=== PATIENT | male | born 1940 | race Caucasian/White ===

== ENCOUNTER → 2017-01-01 | Outpatient (CLI) | payer MEDICARE | END | disposition home or self-care (01) | LOC: PCVCCLINIC 13:43 | PROVIDERS: ATTEND Nuclear Medicine Nuclear Cardiology | DX: I73.9 Peripheral vascular disease, unspecified (principal); I25.810 Atherosclerosis of coronary artery bypass graft(s) without angina pectoris; I10 Essential (primary) hypertension; E78.00 Pure hypercholesterolemia, unspecified; J43.9 Emphysema, unspecified; E03.9 Hypothyroidism, unspecified; F17.200 Nicotine dependence, unspecified, uncomplicated; Z95.1 Presence of aortocoronary bypass graft; Z79.899 Other long term (current) drug therapy | CPT/HCPCS: G0463 ==

== ENCOUNTER → 2017-01-15 | Outpatient (CLI) | payer OTHER ==
[~2017-01-15] MED LIST: ASPIRIN 325 MG TABLET ONE; CLOPIDOGREL BISULFATE 75 MG TABLET ONE; DIAZEPAM 10 MG TABLET. ONE; HEPARIN SODIUM 5,000 UNIT/ML VIAL for PCVC. ONE; IODIXANOL 270 MG/ML 100 ML VIAL. ONE; IV NORMAL SALINE 1000ML BAG 1,000 ML ONE; IV NORMAL SALINE 500ML BAG 500 ML ONE; LIDOCAINE 1% Multi-Dose 20 ML VIAL. ONE; MIDAZOLAM HCL/PF 2 MG/2 ML VIAL. ONE; VANCOMYCIN 1GM IVPB FOR OMNI 250 ML ONE; fentaNYL PF VIAL 100 MCG/2 ML VIAL ONE; hydrALAZINE 20 MG/ML VIAL. ONE
--- NOTE | 2017-01-15 18:24 | PCVCIMAG ---
EXAM: BILATERAL CAROTID DUPLEX INDICATION: Carotid Occlusive Disease. FINDINGS: Doppler Measurements (centimeters per second): RIGHT: Peak CCA-90, Peak ECA-81, Diastolic ICA-34, Peak ICA-186, ICA/CCA Ratio-2.1. LEFT: Peak CCA-98, Peak ECA-92, Diastolic ICA-27, Peak ICA-108, ICA/CCA Ratio-1.1. RIGHT CAROTID: The carotid bulb has moderately severe plaque. The proximal internal carotid artery shows 60-70% stenosis. The common carotid artery shows no significant stenosis. The external carotid artery shows no significant stenosis. LEFT CAROTID: The carotid bulb has moderate plaque. The proximal internal carotid artery shows <40% stenosis. The common carotid artery shows no significant stenosis. The external carotid artery shows no significant stenosis. Antegrade flow in both vertebral arteries. IMPRESSION: 60-70% stenosis of the right internal carotid artery with moderate severe plaque. <40% stenosis of the left internal carotid artery with moderate plaque. LOC:[place] [id number]
--- NOTE | 2017-01-15 18:29 | PCVCIMAG ---
EXAM: DUPLEX ULTRASOUND OF THE LEFT GROIN INDICATION: Groin swelling and pain. FINDINGS: No pseudoaneurysm is present. The common femoral vein is patent. No arteriovenous fistula is seen. Moderate stenosis mid/distal common femoral artery is noted. IMPRESSION: Study is negative for pseudoaneurysm. LOC:[id number]
--- NOTE | 2017-01-15 19:03 | PCVCINTER ---
EXAM: 1. AORTOGRAM AND BILATERAL LOWER EXTREMITY RUNOFF ANGIOGRAM 2. BILATERAL RENAL ANGIOGRAPHY 3. RIGHT COMMON ILIAC ARTERY STENT PLACEMENT. 4. LEFT COMMON ILIAC ARTERY STENT PLACEMENT. 5. SUPERIOR MESENTERIC ARTERY ANGIOGRAM INDICATION: Peripheral arterial disease. Coronary artery disease. Nonhealing ulcer right lower extremity. Hypertension. Renal atherosclerosis. PROCEDURE: Procedure and risks of angiography intervention is appropriate including limb loss stroke and were discussed with the patient's family and consent obtained. The patient's left groin was prepped abnormal sterile fashion. IV conscious sedation was used to procedure with appropriate monitoring for 90 minutes. Ultrasound was used to interrogate the left groin and showed the left common femoral artery to be patent. A permanent spot film was obtained. Under ultrasound guidance access into the left common femoral artery was obtained and a 5 Burmese sheath was placed. Through this a 5 Burmese flush catheter was placed into the abdominal aorta at the level of the renal arteries and AP aortogram was performed. Catheter was positioned at the aortic bifurcation and both oblique views of the pelvis were obtained. Catheter was positioned into the left external iliac artery and left leg runoff angiography was performed. Catheter was exchanged for a visceral catheter was placed into the right renal arteries and right renal angiograms obtained. Catheter was placed into the the left renal arteries and left renal angiograms were obtained. Catheter was placed into the superior mesenteric artery and SMA angiogram was obtained. Catheter was advanced to the level of the right external iliac artery and right leg runoff angiography was obtained. Patient was given 4000 units of heparin. A 6 Burmese crossover sheath was placed via the left groin to the level of the right common iliac artery. Stent placement across the areas of occlusion in the right common iliac artery was carried out with a 10 x 60 Smart control stent with subsequent dilatation to 7.0 mm. Stent placement across the areas of high-grade stenosis in the left common iliac artery was carried out with a 10 x 30 Smart control stent with subsequent dilatation to 7.0 mm. Catheters and wires removed. Sheath was removed and hemostasis obtained using the FISH device. No immediate complications. FINDINGS: Aortogram: There is one right and one left renal artery. Mild plaque infrarenal abdominal aorta without significant stenosis. Pelvis: There is complete occlusion of the right common iliac artery. 80% stenosis left common iliac artery. Moderate plaque throughout the right and left external iliac arteries without high-grade stenosis. The right common femoral artery shows adequate patency. 70% stenosis mid/distal left common iliac artery. Right renal artery: Minimal plaque proximal vessel. No significant stenosis. Left renal artery: Moderate plaque proximal vessel causes 40% stenosis not felt to be flow-limiting. 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 At this level in the proximal superior mesenteric artery there is a 50% stenosis. Mid and distal portions of the superior mesenteric artery appear patent. Right leg: Scattered plaque superficial femoral artery and popliteal artery without significant stenosis. The anterior tibial artery becomes diminutive in size distally. Peroneal artery is patent. Posterior tibial artery is patent. Left le% stenosis mid superficial femoral artery with the proximal/mid superficial femoral artery being small throughout. The distal superficial femoral artery is more normal in size. Popliteal artery shows moderate plaque without high-grade stenosis. The anterior tibial, posterior tibial, and peroneal arteries are patent. Right common iliac artery: Following procedure as above vessel shows satisfactory patency. Left common iliac artery: Following stent placement vessel shows good patency. 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 95% stenosis mid left superficial femoral artery. 50% stenosis proximal superior mesenteric artery not felt to be critically flow-limiting. 70% stenosis mid/distal left common femoral artery. Patient will return in a couple of weeks for intervention to the left superficial femoral artery. LOC:[id number]
== END | disposition home or self-care (01) ==
LOC: PCVCINTER 07:14
PROVIDERS: ATTEND Nuclear Medicine Nuclear Cardiology
DX: I70.213 Atherosclerosis of native arteries of extremities with intermittent claudication, bilateral legs (principal); I70.1 Atherosclerosis of renal artery; I25.10 Atherosclerotic heart disease of native coronary artery without angina pectoris
CPT/HCPCS: 36252; 37221; 75716; 76937; 93880; 93926; 99152; 99153; C1725; C1751; C1769; C1876; C1887; C1894; J0360; J1644; J2250; J3010; J3370; J7030; J7040; Q9966

== ENCOUNTER → 2017-01-29 | Outpatient (CLI) | payer OTHER ==
--- NOTE | 2017-01-29 13:51 | PCVCINTER ---
EXAM: 1. RIGHT EXTERNAL ILIAC ARTERY STENT PLACEMENT 2. LEFT SUPERFICIAL FEMORAL ARTERY ATHERECTOMY AND STENT PLACEMENT. 3. SECONDARY THROMBECTOMY LEFT SUPERFICIAL FEMORAL ARTERY. 4. DRUG COATED BALLOON ANGIOPLASTY LEFT SUPERFICIAL FEMORAL ARTERY. 5. DRUG COATED BALLOON ANGIOPLASTY LEFT COMMON FEMORAL ARTERY. INDICATION: Peripheral arterial disease. Lower extremity claudication. Hypertension. Renal atherosclerosis. PROCEDURE: Procedure and risks of angiography intervention is appropriate including limb loss stroke and were discussed with the patient's family and consent obtained. The patient's right groin was prepped abnormal sterile fashion. IV conscious sedation was used to procedure with appropriate monitoring from 0900 through 1030 hours. Ultrasound was used to interrogate the right groin and showed the right common femoral artery to be patent. A permanent spot film was obtained. Under ultrasound guidance access into the right common femoral artery was obtained and a 6 Hungarian crossover sheath was placed via the right groin to the level of the left common femoral artery. 4000 units of heparin was given IV. Atherectomy of the left superficial femoral artery was performed with 2.0 mm [employer] laser atherectomy catheter in the standard fashion. Following atherectomy small areas of thrombus were observed and because of this secondary thrombectomy throughout the left superficial femoral artery was carried out with mechanical suction thrombectomy catheter in the standard fashion. Minimal debris was removed. Stent placement across the areas of high-grade stenosis in the left superficial femoral artery was carried out with a 6 x 150 and 6 x 80 Smart control stents with subsequent dilatation to 5.0 mm. Following this drug coated balloon angioplasty of the left superficial femoral artery was carried out with a 6 x 150 [employer] catheter. Next drug coated balloon angioplasty of the left common femoral artery was carried out with a 6 x 150 Med[employer] catheter. Stent placement across the areas of high-grade stenosis in the right external iliac artery was carried out with a 8 x 20 Smart control stent with subsequent dilatation to 7.0 mm. Follow-up angiogram was performed. Catheters and wires removed. Sheath was removed and hemostasis obtained using the FISH device. No immediate complications. FINDINGS: Right external iliac artery: Following procedure as above vessel is widely patent. Left common femoral artery: Following procedure as above vessel shows satisfactory patency. Left superficial femoral artery: Following procedure as above vessel is widely patent. IMPRESSION: Areas of significant stenosis in the right external iliac artery, left common femoral artery, and multiple areas in the left superficial femoral artery were treated as above with good patency restored. impression follow up LOC:[id number]
== END | disposition home or self-care (01) ==
LOC: PCVCINTER 07:16
PROVIDERS: ATTEND Nuclear Medicine Nuclear Cardiology
DX: I70.293 Other atherosclerosis of native arteries of extremities, bilateral legs (principal); I70.1 Atherosclerosis of renal artery; I10 Essential (primary) hypertension; E78.00 Pure hypercholesterolemia, unspecified; E78.5 Hyperlipidemia, unspecified
CPT/HCPCS: 37186; 37221; 76937; 99152; 99153; C1725; C1751; C1757; C1769; C1876; C1885; C1887; C1894; C2623; Q9966